=== PATIENT | female | born 1960 | race Caucasian/White ===

== ENCOUNTER 2021-01-06 15:31 | Emergency (ER) | payer BC | END 2021-01-06 16:08 | disposition home or self-care (01) | LOC: CSHERS 15:31 | DX: S83.91XA Sprain of unspecified site of right knee, initial encounter (principal); X58.XXXA Exposure to other specified factors, initial encounter | CPT/HCPCS: 99283 ==

== ENCOUNTER 2022-12-11 09:34 | Outpatient (CLI) | payer BC | END 2022-12-11 09:35 | disposition home or self-care (01) | LOC: CSHCT 09:34 | PROVIDERS: ATTEND Internal Medicine Gastroenterology | DX: R15.9 Full incontinence of feces (principal); R10.11 Right upper quadrant pain; Z98.84 Bariatric surgery status | CPT/HCPCS: 74160; 82565 ==

== ENCOUNTER 2024-03-19 13:27 | Outpatient (CLI) | payer BC | END 2024-03-19 13:28 | disposition home or self-care (01) | LOC: CSHRAD 13:27 | PROVIDERS: ATTEND Physical Medicine & Rehabilitation | DX: M54.50 Low back pain, unspecified (principal); M54.6 Pain in thoracic spine; M41.86 Other forms of scoliosis, lumbar region; M47.816 Spondylosis without myelopathy or radiculopathy, lumbar region; M41.84 Other forms of scoliosis, thoracic region; M47.814 Spondylosis without myelopathy or radiculopathy, thoracic region; M48.54XA Collapsed vertebra, not elsewhere classified, thoracic region, initial encounter for fracture | CPT/HCPCS: 72072; 72100 ==